=== PATIENT | female | born 1950 | race Caucasian/White ===

== ENCOUNTER 2020-04-09 17:11 | Emergency (ER) | payer MEDICARE, OTHER ==
[2020-04-09 18:25] LABS: BILIRUBIN NEGATIVE (NEGATIVE); BLOOD NEGATIVE Ery/uL (NEGATIVE); CLARITY CLOUDY (CLEAR); COLOR YELLOW (YELLOW); GLUCOSE (U) NORMAL (NORMAL); LEUKOCYTES 1+ Leu/uL (NEGATIVE); NITRITE NEGATIVE (NEGATIVE); PROTEIN NEGATIVE (NEGATIVE); SPECIFIC GRAVITY 1.015 (1.001-1.030); UROBILINOGEN 0.2 mg/dL (0.2-1.0); pH 7.5 (5.0-9.0)
[2020-04-09 18:32] LABS: AMORPHOUS PHOSPHATE CRYSTALS MODERATE
[2020-04-09 18:39] LABS: EOSINOPHIL 3.3 % (0-7); HGB 15.9 g/dl (12.5-16.0); LYMPHOCYTE 31.7 % (15-48); MCH 30.9 pg (25.0-31.0); MCHC 31.8 g/dL (32.0-36.0); MCV 97.3 fL (78.0-100.0); MPV 10.5 fL (6.0-9.5); NEUTROPHIL 48.9 % (41-80); NRBC 0; PLT 184 K/uL (150-400); RBC 5.14 M/uL (4.20-5.40)
[2020-04-09 18:51] LABS: ALBUMIN 3.6 g/dL (3.4-5.0); BILIRUBIN - TOTAL 0.5 mg/dL (0.2-1.0); CREATININE 1.37 mg/dL (0.51-0.95); GLOBULIN (CALCULATION) 4.3 g/dL; TOTAL PROTEIN 7.9 g/dL (6.4-8.2)
[2020-04-09 19:14] LABS: INR 1.27 (0.9-1.2); PROTHROMBIN TIME 15.1 SECONDS (11.4-13.6)
== END 2020-04-09 20:35 | disposition home or self-care (01) ==
LOC: FER 17:11
PROVIDERS: Emergency Medicine
DX: R42 Dizziness and giddiness (principal); H53.8 Other visual disturbances; I10 Essential (primary) hypertension; Z86.73 Personal history of transient ischemic attack (TIA), and cerebral infarction without residual deficits; Z95.0 Presence of cardiac pacemaker; Z79.899 Other long term (current) drug therapy
CPT/HCPCS: 36415; 70450; 71045; 80053; 81001; 84484; 85025; 85610; 87088

== ENCOUNTER → 2021-05-04 | Day surgery (SDC) | payer MEDICARE, OTHER ==
[~2021-05-04] VITALS: Ht 162.6 cm; Wt 86.4 kg
[~2021-05-04] MED LIST: CEPHALEXIN500 MG PO; CLOPIDOGREL75 MG PO; CRESTOR5 MG PO; JANTOVEN5 MG PO; NEBIVOLOL HCL10 MG PO; OMEPRAZOLE 20MG20 MG PO; PROBIOTIC1 EAC1 PO; SUCRALFATE1 GM PO; ZOLPIDEM TARTRA10 MG PO
[2021-05-04 07:49] LABS: HCT 30.3 % (37.0-47.0); HGB 9.9 g/dl (12.5-16.0); MCH 32.2 pg (25.0-31.0); MCHC 32.7 g/dL (32.0-36.0); MCV 98.7 fL (78.0-100.0); MPV 9.9 fL (6.0-9.5); RBC 3.07 M/uL (4.20-5.40); RDW 15.5 % (11.5-14.0); WBC 10.1 K/uL (4.0-10.5)
[2021-05-04 07:59] LABS: INR 1.63 (0.9-1.2); PROTHROMBIN TIME 18.6 SECONDS (11.8-13.4)
[2021-05-04 08:08] LABS: BUN/CREAT RATIO (CALC) 20.7 RATIO; CREATININE 1.11 mg/dL (0.51-0.95); POTASSIUM 4.5 mmol/L (3.5-5.1)
== END | disposition home or self-care (01) ==
LOC: FAS 06:49
PROVIDERS: Surgery
DX: R10.13 Epigastric pain (principal); R93.3 Abnormal findings on diagnostic imaging of other parts of digestive tract; Z98.890 Other specified postprocedural states; Z95.4 Presence of other heart-valve replacement; Z79.01 Long term (current) use of anticoagulants
CPT/HCPCS: 36415; 80048; 85610; J2704; J7120

== ENCOUNTER 2021-08-26 06:55 | Emergency (ER) | payer MEDICARE, OTHER ==
[2021-08-26 07:40] LABS: BASOPHIL 0.1 % (0-2); EOSINOPHIL 0 % (0-7); HCT 23.5 % (37.0-47.0); HGB 7.3 g/dl (12.5-16.0); LYMPHOCYTE 12.2 % (15-48); MCH 28.3 pg (25.0-31.0); MCHC 31.1 g/dL (32.0-36.0); MCV 91.1 fL (78.0-100.0); MONOCYTE 14.5 % (0-12); MPV 11.3 fL (6.0-9.5); NEUTROPHIL 68.8 % (41-80); NRBC 1.4; PLT 173 K/uL (150-400); RBC 2.58 M/uL (4.20-5.40); RDW 18.1 % (11.5-14.0)
[2021-08-26 07:45] LABS: INR 1.58 (0.9-1.2); PROTHROMBIN TIME 18.1 SECONDS (11.8-13.4); PTT 47.9 SECONDS (24.4-34.7)
[2021-08-26 07:51] LABS: WBC 21.6 K/uL (4.0-10.5)
[2021-08-26 08:14] LABS: ALBUMIN 2.6 g/dL (3.4-5.0); BILIRUBIN - TOTAL 1.2 mg/dL (0.2-1.0); BUN/CREAT RATIO (CALC) 24.3 RATIO; CREATININE 2.1 mg/dL (0.51-0.95); GLOBULIN (CALCULATION) 3.8 g/dL; POTASSIUM 5.8 mmol/L (3.5-5.1); TOTAL PROTEIN 6.4 g/dL (6.4-8.2)
[2021-08-26 08:29] LABS: LACTIC ACID 11.1 mmol/L (0.4-1.9)
== END 2021-08-26 11:35 | disposition other institution (70) ==
LOC: FER 06:55
PROVIDERS: Emergency Medicine
DX: R57.1 Hypovolemic shock (principal); K66.1 Hemoperitoneum; I10 Essential (primary) hypertension; Z91.041 Radiographic dye allergy status; Z20.822 Contact with and (suspected) exposure to COVID-19
CPT/HCPCS: 36415; 71045; 80053; 82553; 83605; 83690; 84484; 85025; 85610; 85730; 86850; 86900; 86901; 87040; 93005; 96361; 96365; 96367; 96372; 96375; J2310; J2405; J2543; J3370; J7030; J7050; U0002

== ENCOUNTER 2021-11-23 12:36 | Emergency (ER) | payer MEDICARE, OTHER ==
[2021-11-23 14:43] LABS: BASOPHIL 0.2 % (0-2); EOSINOPHIL 0.2 % (0-7); HCT 38.3 % (37.0-47.0); HGB 12.5 g/dl (12.5-16.0); MCHC 32.6 g/dL (32.0-36.0); MCV 92.1 fL (78.0-100.0); MONOCYTE 11.1 % (0-12); MPV 10.2 fL (6.0-9.5); NEUTROPHIL 74.8 % (41-80); NRBC 0.1; PLT 305 K/uL (150-400); RBC 4.16 M/uL (4.20-5.40); RDW 16.2 % (11.5-14.0); WBC 16.3 K/uL (4.0-10.5)
[2021-11-23 15:10] LABS: ALBUMIN 2.5 g/dL (3.4-5.0); BILIRUBIN - TOTAL 0.7 mg/dL (0.2-1.0); CREATININE 1.37 mg/dL (0.51-0.95); POTASSIUM 4.6 mmol/L (3.5-5.1); TOTAL PROTEIN 8.5 g/dL (6.4-8.2)
[2021-11-23 17:36] LABS: LACTIC ACID 1.8 mmol/L (0.4-1.9)
== END 2021-11-23 16:28 | disposition left against medical advice (07) ==
LOC: FER 12:36
PROVIDERS: Nurse Practitioner Family
DX: R10.12 Left upper quadrant pain (principal); I10 Essential (primary) hypertension; Z53.29 Procedure and treatment not carried out because of patient's decision for other reasons; Z79.01 Long term (current) use of anticoagulants
CPT/HCPCS: 36415; 80053; 83605; 84145; 85025